=== PATIENT | male | born 1960 | race African-American/Black ===

== ENCOUNTER 2016-10-31 10:43 | Emergency (ER) | payer MEDICAID ==
[~2016-10-31] VITALS: Ht 190.5 cm; Wt 114.0 kg
[~2016-10-31 10:43] MED LIST: CARV6.2548; CLOP75TA33; RIVA20TA PO
[2016-10-31] MEDS ORDERED: KETOROLAC 60MG/2ML VIAL IM ONE (13:15)
[2016-10-31 15:19] VITALS: BP 130/74
== END 2016-10-31 15:20 | disposition home or self-care (01) ==
LOC: ER 13:53
DX: M54.9 Dorsalgia, unspecified (principal); I25.2 Old myocardial infarction; Z79.01 Long term (current) use of anticoagulants
CPT/HCPCS: 96372; 99283; J1885

== ENCOUNTER 2016-11-14 09:34 | Emergency (ER) | payer MEDICAID ==
[~2016-11-14] VITALS: Ht 190.5 cm; Wt 112.0 kg
[2016-11-14] MEDS ORDERED: KETOROLAC 60MG/2ML VIAL IM ONE (13:15)
[2016-11-14 13:22] VITALS: BP 142/85
== END 2016-11-14 13:45 | disposition home or self-care (01) ==
LOC: ER 12:04
DX: M25.561 Pain in right knee (principal); M25.562 Pain in left knee; I25.2 Old myocardial infarction; Z79.01 Long term (current) use of anticoagulants
CPT/HCPCS: 73562; 96372; 99284; J1885

== ENCOUNTER 2017-05-28 17:44 | Emergency (ER) | payer MEDICAID ==
[~2017-05-28] VITALS: Ht 190.5 cm; Wt 114.0 kg
[2017-05-28] MEDS ORDERED: PREDNISONE 20MG TABLET PO ONE (20:45)
[2017-05-28] MEDS ORDERED: METHOCARBAMOL 500MG TABLET PO ONE (20:45)
[2017-05-28] MEDS ORDERED: KETOROLAC 60MG/2ML VIAL IM ONE (20:45)
[2017-05-28 22:02] VITALS: BP 118/82
== END 2017-05-28 22:04 | disposition home or self-care (01) ==
LOC: ER 17:44
DX: M54.5 Low back pain (principal); G89.29 Other chronic pain; Z87.891 Personal history of nicotine dependence
CPT/HCPCS: 96372; 99283; J1885; J7512

== ENCOUNTER 2018-05-13 07:39 | Emergency (ER) | payer MEDICAID ==
[~2018-05-13] VITALS: Ht 190.5 cm; Wt 109.0 kg
[2018-05-13 07:45] VITALS: BP 157/99
== END 2018-05-13 11:22 | disposition left against medical advice (07) ==
LOC: ER 07:39
DX: R07.89 Other chest pain (principal); Z53.21 Procedure and treatment not carried out due to patient leaving prior to being seen by health care provider
CPT/HCPCS: 93005

== ENCOUNTER 2022-09-28 14:02 | Emergency (ER) | payer MEDICAID ==
[~2022-09-28] VITALS: Ht 190.5 cm; Wt 81.0 kg
[2022-09-28 14:08] VITALS: BP 120/91; PULSE 76; RESP 18; TEMP 98.4; O2SAT 99
[2022-09-28 17:24] LABS: BASOPHILS % 1.1 % (0.0-2.0); HEMATOCRIT. 42.3 % (42.0-52.0); LYMPHOCYTES % 28.1 % (20.0-50.0); MEAN CORPUSCULAR HEMOGLOBIN 30.8 pg (28.0-32.0); MEAN CORPUSCULAR HGB CONC 33.1 g/dL (31.0-37.0); MEAN CORPUSCULAR VOLUME 92.9 fL (80.0-94.0); MEAN PLATELET VOLUME 7.6 fl (7.4-10.4); MONOCYTES % 11.9 % (2.0-8.0); NEUTROPHILS % 56.9 % (40.0-76.0); PLATELET 176 x1000/uL (130-400); RED BLOOD CELL COUNT 4.55 mill/uL (4.7-6.1); RED CELL DISTRIBUTION WIDTH 15.7 % (11.6-14.6); WHITE BLOOD COUNT 4.6 x1000/uL (4.5-11.0)
[2022-09-28 17:34] LABS: CHLORIDE 109 mEq/L (98-107); INDEX HEMOLYSI 1 (1-3); INDEX ICTERIC 1 (1-4); INDEX LIPEMIC 1 (1-3); POTASSIUM 4.5 mEq/L (3.5-5.1); SODIUM 138 mEq/L (136-145)
[2022-09-28 17:38] LABS: INR 1.1; PROTHROMBIN TIME 11.4 sec (9.6-11.0)
[2022-09-28 17:45] LABS: ALANINE AMINOTRANSFERASE 26 IU/L (13-61); ALBUMIN 3.1 g/dL (3.4-5.0); ASPARTATE AMINOTRANSFERASE 19 IU/L (15-37); BILIRUBIN TOTAL 1.7 mg/dL (0.1-1.0); CALCIUM 8.4 mg/dL (8.5-10.1); CARBON DIOXIDE 28 mEq/L (21-32); GLUCOSE 91 mg/dL (70-105); NT PRO B-TYPE NATRIURETIC PEP 1916 pg/mL (5-125); PROTEIN TOTAL 7.4 g/dL (6.0-8.3); TROPONIN I HIGH SENSITIVITY 32 ng/L (<78); UREA NITROGEN BLOOD 13 mg/dL (7-21)
[2022-09-28] MEDS ORDERED: FUROSEMIDE 40MG/4ML VIAL IVP NR (17:45)
[2022-09-28] MEDS ORDERED: FUROSEMIDE 40MG/4ML VIAL IVP ONE (17:45)
[2022-09-28] MEDS ORDERED: FUROSEMIDE 40MG TABLET PO ONE (21:45)
== END 2022-09-28 21:43 | disposition home or self-care (01) ==
LOC: ER 14:11
DX: I50.9 Heart failure, unspecified (principal); I48.91 Unspecified atrial fibrillation; I25.2 Old myocardial infarction; Z95.0 Presence of cardiac pacemaker
CPT/HCPCS: 36415; 71045; 80053; 83880; 84484; 85025; 93005; 99285